=== PATIENT | male | born 1950 | race Caucasian/White ===

== ENCOUNTER → 2021-07-02 | Outpatient (CLI) | payer MEDICARE, OTHER | LOC: KOH-I 15:11 | DX: R10.11 Right upper quadrant pain (principal) | CPT/HCPCS: 74150 ==

== ENCOUNTER → 2021-07-30 | Day surgery (SDC) | payer MEDICARE, OTHER ==
[~2021-07-30] MED LIST: ASPIRIN CHEWABL81 MG PO; CENTRUM SILVER1 EAC2 PO; LEVOTHYROXINE88 MC1 PO; LIPITOR20 MG PO; PREVACID30 MG PO; VITAMIN B-121000 MCG PO; VITAMIN C100 MG PO
== END | disposition home or self-care (01) ==
LOC: OR 07-28 11:15
DX: R10.11 Right upper quadrant pain (principal); K31.89 Other diseases of stomach and duodenum; E66.3 Overweight; E78.00 Pure hypercholesterolemia, unspecified; E03.9 Hypothyroidism, unspecified; Z88.1 Allergy status to other antibiotic agents; Z79.82 Long term (current) use of aspirin; Z53.29 Procedure and treatment not carried out because of patient's decision for other reasons; Z20.822 Contact with and (suspected) exposure to COVID-19
CPT/HCPCS: J7040